=== PATIENT | female | born 1980 | race Hispanic/Latino ===

== ENCOUNTER 2021-09-25 20:18 | Emergency (ER) | payer OTHER, SELFPAY ==
[2021-09-25 20:20] VITALS: BP 110/80; PULSE 65; RESP 18; TEMP 35.7; O2SAT 97; BMI 27.4
--- NOTE | 2021-09-25 21:10 | RAD_ITS ---
INDICATION: INJURY EXAMINATION/TECHNIQUE: X-RAY - LEFT XR Shoulder Min 2 Views 4 VIEWS COMPARISON: None. FINDINGS: SOFT TISSUES: No soft tissue swelling or gas. No radiopaque foreign body. BONES/JOINTS: No acute fracture or subluxation.. Normal alignment. Preservation of the joint space.. No sclerotic or destructive changes observed. RAD/Shoulder min 2 Views IMPRESSION: Negative. Electronically Signed: Brian Gann DO at 21:31 EST Tel , Service support ,
--- NOTE | 2021-09-25 22:41 | EX.ED.UPPERE ---
HPI History of Present Illness Chief Complaint: Upper Extremity Injury Narrative Narrative: 40-year-old female presenting with left shoulder pain. She states she initially injured this at work a few months ago. Today she was trying to lift something and felt a pull in the left trapezius. She took 2 Tylenol prior to arrival and her pain is actually improved. She denies paresthesias. She denies any direct trauma. She does still maintain full range of motion of the left shoulder. She denies any neck pain. PFSH PFSH Home Medications naproxen [Naprosyn] 500 mg PO BID #30 tab 09/25/21 [Rx Last Taken Unknown] Allergy/AdvReac Type Severity Reaction Status Date / Time No Known Allergies Allergy Verified 09/25/21 20:21 ROS ROS ED Constitutional Constitutional ED: Denies chills, fever(s) or sweats Eyes Eyes: Denies blurry vision or change in vision ENT ENT ED: Denies rhinorrhea or sore throat Cardiovascular Cardiovascular: Denies chest pain or palpitations Respiratory/Chest Respiratory/Chest: Denies cough or dyspnea Gastrointestinal Gastrointestinal: Denies abdominal pain or nausea Genitourinary Genitourinary ED: Denies dysuria or hematuria Musculoskeletal Musculoskeletal: Reports other Details: Left shoulder pain ; Denies neck pain Integumentary Denies rash Neurologic Neurologic: Denies headache(s) or paresthesias EXAM Physical Exam Const Vital Signs: 09/25/21 20:20 Temperature 96.3 F L Temperature Source Temporal Pulse Rate 65 Respiratory Rate 18 Blood Pressure 110/80 Blood Pressure Mean 90 Pulse Ox 97 Oxygen Delivery Method Room Air Positive well nourished General Appearance ED: NAD HEENT Reports moist mucous membranes normocephalic and atraumatic Resp normal respiratory effort Cardio regular rate and regular rhythm Extremity Extremity Narrative: Left shoulder has full range of motion both actively and passively. There is tenderness to palpation over the lateral aspect of the left trapezius. No ecchymosis, crepitance. No midline spinal tenderness, deformity, step-off of the cervical spine. Neuro Sensorium / Orientation: alert Psych mental status grossly normal Skin Lesions: No no lesions Rashes: No no rashes MDM MDM MDM Narrative Medical decision making narrative: Patient injury is likely musculoskeletal. I do not suspect a torn rotator cuff. Patient took Tylenol and her pain is improved. I did obtain an x-ray of the left shoulder which on my interpretation shows no acute fracture, subluxation or bony abnormality. Radiologist does agree. Patient was given a dose of Toradol here in the ED. She was offered muscle relaxers but states she does not like to take these. She will follow up with her PCP to ensure resolution. I will provide her Naprosyn for home. Impression: 1. Left shoulder strain Radiography Diagnostic Testing: Clinical Impression(s) from Imaging Studies Shoulder X-Ray 09/25/21 21:10 IMPRESSION: Negative. Electronically Signed: Brian DO Sanjuanita at 21:31 EST Tel , Service support , Discharge Plan Triage Chief Complaint: Upper Extremity Injury ED Provider: Cameron Mendenhall Dx/Rx/DC Orders Instructions: ED Shoulder Sprain Prescriptions: New naproxen [Naprosyn] 500 mg tablet 500 mg PO BID Qty: 30 RF: 0 Primary Care Provider: Trung Garcia Referrals: Trung Garcia MD [Primary Care Provider] - Disposition Disposition: Home, Self Care
[2021-09-25] MEDS: Ketorolac 15 MG/ML Vial IM (22:42)
== END 2021-09-25 22:49 | disposition home or self-care (01) ==
PROVIDERS: Emergency Provider Student in an Organized Health Care Education/Training Program; PCP Family Medicine
DX: S46.912A Strain of unspecified muscle, fascia and tendon at shoulder and upper arm level, left arm, initial encounter (principal); X50.0XXA Overexertion from strenuous movement or load, initial encounter; Y93.89 Activity, other specified; Y92.89 Other specified places as the place of occurrence of the external cause; Y99.0 Civilian activity done for income or pay
CPT/HCPCS: 73030; 96372; 99282

== ENCOUNTER 2022-01-27 17:22 | Emergency (ER) | payer OTHER, SELFPAY ==
[2022-01-27 17:23] VITALS: BP 114/82; PULSE 89; RESP 14; TEMP 36.3; O2SAT 100; BMI 27.6
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
== END 2022-01-27 18:01 | disposition home or self-care (01) ==
PROVIDERS: Emergency Provider Emergency Medicine; PCP Family Medicine; Visit Provider Emergency Medicine
DX: Z04.1 Encounter for examination and observation following transport accident (principal); M25.561 Pain in right knee; V43.92XA Unspecified car occupant injured in collision with other type car in traffic accident, initial encounter; Y93.9 Activity, unspecified; Y99.9 Unspecified external cause status; Y92.410 Unspecified street and highway as the place of occurrence of the external cause
CPT/HCPCS: 73564; 99282